=== PATIENT | male | born 1965 | race Caucasian/White ===

== ENCOUNTER 2022-08-15 01:37 | Emergency (ER) | payer BC ==
[2022-08-15] MEDS ORDERED: Lidocaine 1% with EPINEPHrine 1:100,000 50 ML MDV SUBCUT STA (04:01)
== END 2022-08-15 03:00 | disposition home or self-care (01) ==
LOC: LB.ED 01:37
DX: S01.81XA Laceration without foreign body of other part of head, initial encounter (principal); W01.0XXA Fall on same level from slipping, tripping and stumbling without subsequent striking against object, initial encounter
CPT/HCPCS: 12002; 12014; 99281; 99283

== ENCOUNTER 2024-02-16 11:28 | Emergency (ER) | payer BC, OTHER ==
[2024-02-16] MEDS ORDERED: Naloxone 2 MG/2 ML Syringe IVPUSH PRN (11:33)
[2024-02-16] MEDS: HYDROmorphone 2 MG/ML Syringe IVPUSH ONE ×2 (11:44→12:24)
[2024-02-16] MEDS: Ketorolac 30 MG/ML SDV IVPUSH ONE (11:44)
[2024-02-18] MEDS: HYDROmorphone 2 MG/ML Syringe ONE (07:58)
== END 2024-02-16 12:33 | disposition home or self-care (01) ==
LOC: LB.ED 11:28
DX: M54.50 Low back pain, unspecified (principal); I10 Essential (primary) hypertension; F17.210 Nicotine dependence, cigarettes, uncomplicated; Z79.899 Other long term (current) drug therapy; Z86.19 Personal history of other infectious and parasitic diseases
CPT/HCPCS: 72100; 96374; 96375; 96376; 99283; J1170; J1885

== ENCOUNTER 2024-02-24 12:14 | Emergency (ER) | payer OTHER ==
[2024-02-24] MEDS ORDERED: Naloxone 2 MG/2 ML Syringe IVPUSH PRN (12:54)
[2024-02-24] MEDS: Ketorolac 60 MG/2 ML SDV IM ONE (12:57)
[2024-02-24] MEDS: HYDROmorphone 2 MG/ML Syringe IM ONE (12:57)
== END 2024-02-24 13:15 | disposition home or self-care (01) ==
LOC: LB.ED 12:14
DX: M54.50 Low back pain, unspecified (principal); I10 Essential (primary) hypertension; Z79.899 Other long term (current) drug therapy; Z87.891 Personal history of nicotine dependence
CPT/HCPCS: 96372; 99283; J1170; J1885